=== PATIENT | male | born 1975 | race Caucasian/White ===

== ENCOUNTER 2021-06-26 09:24 | Emergency (ER) | payer BC ==
[~2021-06-26] VITALS: Ht 175.3 cm; Wt 104.3 kg
== END 2021-06-26 13:30 | disposition home or self-care (01) ==
LOC: ER1 09:24
DX: U07.1 COVID-19 (principal); I10 Essential (primary) hypertension; Z23 Encounter for immunization
CPT/HCPCS: 99283; M0247